=== PATIENT | female | born 1960 | race Caucasian/White ===

== ENCOUNTER 2017-02-18 06:40 | Day surgery (SDC) | payer OTHER ==
[2017-02-17 15:50] VITALS: BP 105/62
[2017-02-17 16:22] LABS: BASOPHILS % (AUTO) 0.5 % (0.0-5.0); EOSINOPHILS % (AUTO) 1.3 % (0.0-8.0); HEMATOCRIT 38.5 % (36-48); MEAN CORPUSCULAR HEMOGLOBIN 29.5 pg (27.0-33.0); MEAN CORPUSCULAR HGB CONC 33.3 g/dL (32.0-36.0); MEAN CORPUSCULAR VOLUME 88.6 fL (79-99); MONOCYTES % (AUTO) 6.8 % (3.0-13.0); NEUTROPHILS % (AUTO) 66.4 % (40.0-77.0); PLATELET COUNT (AUTO) 302 K/uL (130-400); RED BLOOD CELL COUNT(AUTO) 4.35 MIL/uL (4.00-5.50); RED CELL DISTRIBUTION WIDTH 13.9 % (11.0-15.5); WHITE BLOOD COUNT (AUTO) 7.2 K/uL (4.8-10.8)
[~2017-02-18] VITALS: Ht 157.5 cm; Wt 55.3 kg
[2017-02-18] VITALS (15 sets, daily range): BP systolic 102–158; BP diastolic 52–82
[~2017-02-18 06:40] MED LIST: ATOR10TA69 PO; CEFAZOLIN SODIUM 1 GM VIAL IVP SCH; L.AC1CAP6 PO; MULT-1203 PO; VITAMIN D PO; VITAMIN E PO; [UNRECOGNIZED DRUG - OTHER] TP
[2017-02-18] MEDS ORDERED: VASOPRESSIN 20 UNITS/ML 1ML VIAL ONE (07:55)
[2017-02-18] MEDS: LACTATED RINGERS 1000ML 1,000 ML IV SCH ×2 (07:55→08:55)
[2017-02-18] MEDS ORDERED: STRONG IODINE SOLUTION 30ML BOTTLE ONE (07:55)
[2017-02-18] MEDS ORDERED: SODIUM CHLORIDE 0.9% 10 ML VIAL ONE (07:57)
[2017-02-18] MEDS ORDERED: FENTANYL CITRATE PF 50 MCG/1 ML 2ML VIAL ONE (08:17)
[2017-02-18] MEDS ORDERED: MIDAZOLAM HCL 1 MG/ML 2ML VIAL ONE (08:17)
[2017-02-18] MEDS ORDERED: LIDOCAINE HCL 4% LTA SOL 4 ML VIAL ONE (08:17)
[2017-02-18] MEDS ORDERED: PROPOFOL 10 MG/ML 20ML VIAL IV ONE (08:17)
[2017-02-18] MEDS ORDERED: MEPERIDINE-PF 25 MG/ML SYG ONE (09:27)
== END 2017-02-18 10:05 | disposition home or self-care (01) ==
LOC: DAH 06:40
PROVIDERS: ATTEND Specialist
DX: R89.6 Abnormal cytological findings in specimens from other organs, systems and tissues (principal); Z98.890 Other specified postprocedural states; Z91.048 Other nonmedicinal substance allergy status
CPT/HCPCS: 36415; 57520; 84703; 85025; 88307; A4351; J2175; J2250; J2704; J3010; J3490; J7120

== ENCOUNTER 2020-10-10 13:15 | Day surgery (SDC) | payer BC ==
[~2020-10-10] VITALS: Ht 157.5 cm; Wt 56.2 kg
[~2020-10-10 13:15] MED LIST changes: -CEFAZOLIN SODIUM 1 GM VIAL IVP SCH
[2020-10-10 14:07] VITALS: BP 129/73
[2020-10-10] MEDS ORDERED: 0.9%NACL 1000ML 1,000 ML IV ONE (14:20)
[2020-10-10] MEDS ORDERED: PROPOFOL 10 MG/ML 20ML VIAL IV ONE ×2 (15:11→15:26)
[2020-10-10 15:32] VITALS: BP 114/76
[2020-10-10 15:37] VITALS: BP 127/61
== END 2020-10-10 16:05 | disposition home or self-care (01) ==
LOC: DAH 13:15 → ENDO 13:15
PROVIDERS: ATTEND Internal Medicine
DX: Z12.11 Encounter for screening for malignant neoplasm of colon (principal); K64.0 First degree hemorrhoids; K59.04 Chronic idiopathic constipation; E78.5 Hyperlipidemia, unspecified; E03.9 Hypothyroidism, unspecified; Z79.899 Other long term (current) drug therapy; Z98.890 Other specified postprocedural states; Z88.3 Allergy status to other anti-infective agents; Z79.890 Hormone replacement therapy
CPT/HCPCS: 45378; A4215 ×2; A4221; A4222; A4223; A4606; A4620; A4657; A4663; J2704 ×2; J7030

== ENCOUNTER → 2023-02-21 | Outpatient (CLI) | payer BC | END | disposition home or self-care (01) | LOC: RAH 14:00 | PROVIDERS: ATTEND Anesthesiology Pain Medicine | DX: S22.060A Wedge compression fracture of T7-T8 vertebra, initial encounter for closed fracture (principal); M41.84 Other forms of scoliosis, thoracic region; M51.34 Other intervertebral disc degeneration, thoracic region; X58.XXXA Exposure to other specified factors, initial encounter; Y93.89 Activity, other specified; Y92.89 Other specified places as the place of occurrence of the external cause; Y99.8 Other external cause status | CPT/HCPCS: 72146 ==

== ENCOUNTER → 2023-10-01 | Outpatient (CLI) | payer BC | END | disposition home or self-care (01) | LOC: RAH 11:30 | PROVIDERS: ATTEND Neurological Surgery | DX: M47.22 Other spondylosis with radiculopathy, cervical region (principal); M40.292 Other kyphosis, cervical region; M50.322 Other cervical disc degeneration at C5-C6 level; M50.121 Cervical disc disorder at C4-C5 level with radiculopathy | CPT/HCPCS: 72141 ==

== ENCOUNTER → 2024-03-22 | Outpatient (CLI) | payer OTHER ==
--- NOTE | 2024-03-22 15:46 | HMCIMG ---
CT HEART SAVER PROMOTIONAL HISTORY: Calcium scoring COMPARISON: None TECHNIQUE: Computed tomography of the heart was performed with ECG gating and suspended respiration. Postprocessing was performed on a computer workstation to obtain diastolic phase images, determine calcium score and provide a quantitative assessment of extent of disease. This CT included only the heart. HeartSaver score is 66.90. Please see cardiac calcium score report. The available CT chest images show no acute finding. CT was performed with one or more following dose reduction techniques: automated exposure control, adjustment of the mA and kv according to patient's size, or use of a iterative reconstruction technique.
== END | disposition home or self-care (01) ==
LOC: RAH 14:49
DX: Z13.6 Encounter for screening for cardiovascular disorders (principal)
CPT/HCPCS: 75571

== ENCOUNTER → 2024-08-02 | Outpatient (CLI) | payer BC ==
--- NOTE | 2024-08-02 10:44 | HMCIMG ---
Exam Type: US ABDOMINAL COMPLETE Clinical Information: Unspecified abdominal pain Comparison: None Findings: The liver shows normal echogenicity and is otherwise unremarkable. The liver measures less than 16 cm in length. Doppler evaluation shows patent portal and hepatic veins. The gallbladder shows no significant abnormalities. Specifically, no calculi are seen. The gallbladder wall thickness is 3 mm. No bile duct dilatation is noted. The common bile duct measures 4 mm. The right kidney measures 8.1 x 3.8 cm. The left kidney measures 9.4 x 4.2 cm. The kidneys are normal in size and echogenicity. No hydronephrosis or renal calculi are seen. There are no renal masses. The pancreas is unremarkable. The spleen is unremarkable. The aorta and inferior vena cava show no significant abnormalities. IMPRESSION: Normal exam.
== END | disposition home or self-care (01) ==
LOC: RAH 09:56
PROVIDERS: ATTEND Nurse Practitioner Family
DX: R10.9 Unspecified abdominal pain (principal)
CPT/HCPCS: 76700

== ENCOUNTER → 2025-02-08 | Outpatient (CLI) | payer BC ==
--- NOTE | 2025-02-08 23:42 | HMCIMG ---
EXAM: XR Cervical spine, 5 Views total. CLINICAL HISTORY: Radicuolopathy COMPARISON: None provided. FINDINGS: BONES: No acute fracture or aggressive appearing osseous lesion. Normal alignment of cervical spine. Sclerosis of adjacent endplates is seen at C5-C6 and C6-C7 levels. DISCS/DEGENERATIVE CHANGES: Osteophyte seen at C4-C7 levels most pronounced at C5 and C6. educed disc heights seen at C5-C6 and C6-C7 levels. SOFT TISSUES: No prevertebral soft tissue swelling evident in the cervical spine. The visualized lungs appear clear. IMPRESSION: * Cervical spondylosis, most pronounced at C5???6 and C6???7 levels. * No acute injury seen. /[place]
== END | disposition home or self-care (01) ==
LOC: RAH 15:19
PROVIDERS: ATTEND Physician Assistant
DX: M47.22 Other spondylosis with radiculopathy, cervical region (principal); M25.78 Osteophyte, vertebrae; M50.122 Cervical disc disorder at C5-C6 level with radiculopathy; M50.123 Cervical disc disorder at C6-C7 level with radiculopathy
CPT/HCPCS: 72050